=== PATIENT | female | born 1955 | race Hispanic/Latino ===

== ENCOUNTER → 2023-05-21 | Outpatient (CLI) | payer OTHER ==
[~2023-05-21] MED LIST: CLON0.5T4 PO; HYDR50CA50 PO; LISI10TA24 PO; PRIM50TA29 PO; PROP40TA7 PO; SERT-440 PO
== END | disposition home or self-care (01) ==
LOC: SHCH 10:42
PROVIDERS: ATTEND Internal Medicine
DX: I07.1 Rheumatic tricuspid insufficiency (principal); E78.5 Hyperlipidemia, unspecified
CPT/HCPCS: 93306